=== PATIENT | female | born 1965 | race Caucasian/White ===

== ENCOUNTER 2018-02-19 20:53 | Emergency (ER) | payer BC, OTHER ==
[2018-02-19] MEDS ORDERED: Sodium Chloride 0.9% 10 ML Syringe FLUSH PRN (21:09)
[2018-02-19] MEDS: ALPRAZolam 0.25 MG Tab PO ONE (21:20)
[2018-02-19] MEDS: ALPRAZolam 0.25 MG Tab ONE (21:22)
[2018-02-19] MEDS: Lactated Ringers 1,000 ML IV SCH (21:35)
[2018-02-19 21:55] LABS: CHLORIDE,CL 107 mmol/L (98-107); SODIUM,NA 141 mmol/L (136-145)
[2018-02-19 21:57] LABS: ANION GAP 12.7 mmol/L (10-20)
--- NOTE | 2018-02-19 21:59 | EDM.PDOC ---
ED HPI GENERAL MEDICAL PROBLEM - General Chief Complaint: Behavioral/Psych Stated Complaint: blood pressure, anxiety Time Seen by Provider: 02/19/18 21:02 Source of Information: Reports: Patient History Limitations: Reports: No Limitations - History of Present Illness INITIAL COMMENTS - FREE TEXT/NARRATIVE: Patient presents this evening with complaints of dizziness, tingling to her fingers and she is wondering if she can get her blood pressure checked. Patient works at [employer] and was in the kitchen this evening where the temperature was quite elevated. She began a unit dizzy and feeling somewhat anxious and went into their walk-in cooler to cool down which was not fully effective so she decided to come into the ER today. Patient denies chest pain or pressure, shortness of breath, abdominal pain, any blood in her urine or stool, no bloody emesis. She also denies headache, change in level of consciousness, seizure history, or recent illness. Medical history includes diabetes and she does take metformin orally. Onset: Sudden Onset Date: 02/19/18 Location: Reports: Generalized Associated Symptoms: Reports: Diaphoresis, Other (numbness and tingling to bilateral hands) - Related Data Allergies Allergy/AdvReac Type Severity Reaction Status Date / Time No Known Allergies Allergy Verified 02/19/18 21:11 Home Meds: Home Meds metFORMIN HCl [Metformin HCl] 1,000 mg PO BID 02/19/18 [History] ED ROS GENERAL - Review of Systems Review Of Systems: See Below Constitutional: Reports: Diaphoresis HEENT: Reports: No Symptoms Respiratory: Reports: No Symptoms Cardiovascular: Reports: No Symptoms Endocrine: Reports: No Symptoms GI/Abdominal: Reports: No Symptoms : Reports: No Symptoms Musculoskeletal: Reports: No Symptoms Skin: Reports: No Symptoms Neurological: Reports: Dizziness, Tingling (bilateral hands) Psychiatric: Reports: No Symptoms Hematologic/Lymphatic: Reports: No Symptoms Immunologic: Reports: No Symptoms ED EXAM, NEURO - Physical Exam Exam: See Below Exam Limited By: No Limitations General Appearance: Alert, WD/WN, No Apparent Distress Eye Exam: Bilateral Eye: EOMI, Normal Inspection, PERRL Ears: Normal TMs Nose: Normal Inspection, Normal Mucosa, No Blood Throat/Mouth: Normal Inspection, Normal Lips, Normal Teeth, Normal Gums, Normal Oropharynx, Normal Voice, No Airway Compromise Head Exam: Atraumatic, Normocephalic Neck: Normal Inspection, Supple, Non-Tender, Full Range of Motion Respiratory/Chest: No Respiratory Distress, Lungs Clear, Normal Breath Sounds, No Accessory Muscle Use, Chest Non-Tender Cardiovascular: Normal Peripheral Pulses, Regular Rate, Rhythm, No Edema, No Gallop, No JVD, No Murmur, No Rub GI/Abdominal: Normal Bowel Sounds, Soft, Non-Tender, No Organomegaly, No Distention, No Abnormal Bruit, No Mass Neurological: Alert, Normal Mood/Affect, Normal Dorsiflexion, CN II-XII Intact, Normal Plantar Flexion, Normal Gait, Normal Reflexes, No Motor/Sensory Deficits , Oriented x 3 Back Exam: Normal Inspection, Full Range of Motion, NT Extremities: Normal Inspection, Normal Range of Motion, Non-Tender, No Pedal Edema, Normal Capillary Refill Psychiatric: Anxious Skin Exam: Warm, Intact, Normal Color, No Rash, Diaphoretic Course - Vital Signs Last Recorded V/S: Last Vital Signs Temp 36.1 C 02/19/18 21:05 Pulse 86 02/19/18 21:56 Resp 16 02/19/18 21:56 BP 132/75 02/19/18 21:56 Pulse Ox 100 02/19/18 21:05 - Orders/Labs/Meds Orders: Active Orders 24 hr Category Date Time Status Saline Lock Insert [OM.PC] Routine Oth 02/19/18 21:09 Ordered Labs reviewed. Within normal limits. Labs: Laboratory Tests 02/19/18 02/19/18 Range/Units 21:25 21:25 WBC 7.7 (4.0-10.0) x10^3/uL RBC 4.71 (4.00-5.50) x10^6/uL Hgb 14.4 (12.0-16.0) g/dL Hct 42.5 (33.0-47.0) % MCV 90.2 (78.0-93.0) fL MCH 30.6 (26.0-32.0) pg MCHC 33.9 (32.0-36.0) g/dL RDW Coeff of Lucia 13.1 (10.0-15.0) % Plt Count 267 (130-400) x10^3/uL Neut % (Auto) 67.9 (50.0-80.0) % Lymph % (Auto) 25.0 (25.0-50.0) % [place] % (Auto) 6.6 (2.0-11.0) % Eos % (Auto) 0.4 (0.0-4.0) % Baso % (Auto) 0.1 L (0.2-1.2) % Sodium 141 (136-145) mmol/L Potassium 3.7 (3.5-5.1) mmol/L Chloride 107 (98-107) mmol/L Carbon Dioxide 25 (21-32) mmol/L Anion Gap 12.7 (10-20) mmol/L BUN 13 (7-18) mg/dL Creatinine 1.0 (0.55-1.02) mg/dL Est Cr Clr Drug Dosing 60.21 mL/min Estimated GFR (MDRD) 58 Glucose 122 H (74-106) mg/dL Calcium 8.8 (8.5-10.1) mg/dL Corrected Calcium 8.88 (8.5-10.1) mg/dL Total Bilirubin 0.6 (0.2-1.0) mg/dL AST 20 (15-37) U/L ALT 32 (14-59) U/L Alkaline Phosphatase 76 (46-116) U/L Troponin I < 0.017 (<=0.056) ng/mL Total Protein 7.0 (6.4-8.2) g/dL Albumin 3.9 (3.4-5.0) g/dL Globulin 3.1 Albumin/Globulin Ratio 1.26 Meds: Medications Discontinued Medications Generic Name Dose Route Start Last Admin Trade Name Freq PRN Reason Stop Dose Admin Alprazolam 0.5 mg 02/19/18 21:03 02/19/18 21:20 Xanax PO 02/19/18 21:04 0.5 mg ONETIME ONE Administration Alprazolam Confirm 02/19/18 21:22 02/19/18 21:22 Xanax Administered 02/19/18 21:23 Not Given Dose 0.25 mg .ROUTE .STK-MED ONE Lactated Ringer's 1,000 mls @ 999 mls/hr 02/19/18 21:15 02/19/18 21:35 Ringers, Lactated IV 999 mls/hr ASDIRECTED MANUELA Administration Sodium Chloride 10 ml 02/19/18 21:09 Saline Flush FLUSH ASDIRECTED PRN Keep Vein Open Departure - Departure Time of Disposition: 22:50 Disposition: Home, Self-Care 01 Condition: Good Clinical Impression: Anxiety, Dehydration Heat exhaustion Qualifiers: Encounter type: initial encounter Qualified Code(s): T67.5XXA - Heat exhaustion , unspecified, initial encounter - Discharge Information Instructions: Panic Attack, [id number], Dehydration, Adult, [id number] Referrals: Cathie Pathak [facility] [Primary Care Provider] - Forms: ED Department Discharge Additional Instructions: Make sure to stay well hydrated. I would also suggest visiting with your primary doctor about the possibility of some as needed anxiety medication. If you experience any further symptoms, please call or return to the ER. Please call if you have any questions or concerns. - Problem List & Annotations (1) Anxiety SNOMED Code(s): 65068850 Code(s): F41.9 - ANXIETY DISORDER, UNSPECIFIED Status: Acute Priority: Low (2) Dehydration SNOMED Code(s): 35071823 Code(s): E86.0 - DEHYDRATION Status: Acute Priority: Low (3) Heat exhaustion SNOMED Code(s): 83866558 Code(s): T67.5XXA - HEAT EXHAUSTION, UNSPECIFIED, INITIAL ENCOUNTER Status : Acute Priority: Low Qualifiers: Encounter type: initial encounter Qualified Code(s): T67.5XXA - Heat exhaustion, unspecified, initial encounter - Problem List Review Problem List Initiated/Reviewed/Updated: Yes - My Orders Last 24 Hours: My Active Orders 02/19/18 21:09 Saline Lock Insert [OM.PC] Routine - Assessment/Plan Last 24 Hours: My Active Orders 02/19/18 21:09 Saline Lock Insert [OM.PC] Routine Assessment:: heat exhaustion anxiety Plan: Make sure to stay well hydrated. I would also suggest visiting with your primary doctor about the possibility of some as needed anxiety medication. If you experience any further symptoms, please call or return to the ER. Please call if you have any questions or concerns.
== END 2018-02-19 22:50 | disposition home or self-care (01) ==
LOC: VM.ED 20:53
DX: T67.5XXA Heat exhaustion, unspecified, initial encounter (principal); F41.9 Anxiety disorder, unspecified; E86.0 Dehydration; E11.9 Type 2 diabetes mellitus without complications; Z79.84 Long term (current) use of oral hypoglycemic drugs
CPT/HCPCS: 36415; 80053; 84484; 85025; 96360; 99284; A9270-GY; J7120

== ENCOUNTER 2021-09-11 14:36 | Inpatient (IN) | payer BC, OTHER ==
[2021-09-11] MEDS ORDERED: Albuterol/Ipratropium 3.0-0.5 MG/3 ML Neb Soln NEB ONE (14:52)
[2021-09-11 15:35] LABS: CHLORIDE,CL 102 mmol/L (98-107); SODIUM,NA 138 mmol/L (136-145)
[2021-09-11 15:37] LABS: ANION GAP 8.3 mmol/L (5-15)
[2021-09-11 15:46] LABS: CORONAVIRUS COVID-19 NAA POSITIVE (NEGATIVE)
[2021-09-11] MEDS ORDERED: Dexamethasone 4 MG/ML SDV IVPUSH ONE ×2 (15:46→17:28)
[2021-09-11 15:47] LABS: RESPIRATORY SYNCYTIAL VIR NAA NEGATIVE (NEGATIVE)
[2021-09-11] MEDS ORDERED: Lactated Ringers 1,000 ML IV ONE (15:47)
[2021-09-11 16:31] LABS: PTT,PARTIAL THROMBOPLSTIN TIME 25.8 SEC (25.6-32.8)
[2021-09-11] MEDS ORDERED: Iopamidol 755 Mg/ML 100 ML Bottle IVPUSH ONE (16:49)
[2021-09-11] MEDS ORDERED: Acetaminophen 325 MG Tab PO PRN (17:25)
[2021-09-11] MEDS ORDERED: Albuterol 0.083% 2.5 MG/3 ML Neb Soln NEB PRN (17:25)
[2021-09-12] MEDS: dexAMETHasone 2 MG, dexAMETHasone 4 MG PO SCH ×2 (10:49)
[2021-09-12] MEDS: Enoxaparin 40 MG/0.4 ML Syringe SUBCUT SCH (14:20)
[2021-09-13] MEDS: dexAMETHasone 2 MG, dexAMETHasone 4 MG PO SCH ×2 (09:02)
[2021-09-13] MEDS: Enoxaparin 40 MG/0.4 ML Syringe SUBCUT SCH (11:48)
== END 2021-09-13 13:10 | disposition home or self-care (01) | DRG 177 ==
LOC: VM.ED 14:36 → UNDOADMIN 16:07 → VM.MS 16:07
PROVIDERS: ADMIT Nurse Practitioner Family; ATTEND Family Medicine
PROC: 8E0ZXY6 Isolation (ICD-10-PCS; principal; 2021-09-11)
PROC: 3E0333Z Introduction of Anti-inflammatory into Peripheral Vein, Percutaneous Approach (ICD-10-PCS; 2021-09-11)
DX: U07.1 COVID-19 (principal); J12.82 Pneumonia due to coronavirus disease 2019; J96.01 Acute respiratory failure with hypoxia; Z90.710 Acquired absence of both cervix and uterus
CPT/HCPCS: 0241U; 36415; 71046; 71275; 80053; 82728; 83605; 83615; 83880; 84145; 84484; 85025; 85379; 85610; 85652; 85730; 86140; 93005; 94640; 94760; 96374; 96376; 99284; 99285-25; J1100; J1650; J7120; J7620-GY; J8540; Q9967